=== PATIENT | male | born 2000 | race Caucasian/White ===

== ENCOUNTER 2025-07-06 09:23 | Emergency (ER) | payer SELFPAY ==
[~2025-07-06] VITALS: Ht 170.1 cm; Wt 115.7 kg
[~2025-07-06 09:23] MED LIST: SERTRALINE HYDR50 MG PO
== END 2025-07-06 11:40 | disposition home or self-care (01) ==
LOC: ED 09:23
DX: S39.012A Strain of muscle, fascia and tendon of lower back, initial encounter (principal); F32.A Depression, unspecified; X58.XXXA Exposure to other specified factors, initial encounter; Y93.89 Activity, other specified; Y92.89 Other specified places as the place of occurrence of the external cause; Y99.8 Other external cause status